=== PATIENT | male | born 1985 | race Caucasian/White ===

== ENCOUNTER 2018-01-17 14:41 | Observation (INO) | payer OTHER ==
[~2018-01-17] VITALS: Ht 182.9 cm; Wt 92.0 kg
[~2018-01-17 14:41] MED LIST: MOTRIN800 MG PO; NORCO 10/3251 TABLET PO; NORCO 7.5/321 TABLET PO; PEN-VEE K,VEET500 MG PO; VENTOLIN HFA18 GM IH
[2018-01-17 15:19] LABS: HEMATOCRIT 44.6 % (38.0-50.0); HEMOGLOBIN 15.7 G/DL (12.5-16.6); MCH 29.7 PG (29.0-34.0); MCHC 35.2 G/DL (30.0-36.0); MCV 84.3 FL (86-99); PLATELET COUNT 235 K/uL (156-360); RBC DIS.WIDTH-CV 13.2 % (11.8-14.6); RBC DIS.WIDTH-SD 40.7 % (39-53); RED BLOOD COUNT 5.29 M/uL (4.00-5.50); WHITE BLOOD COUNT 12.5 K/uL (4.1-10.2)
[2018-01-17 15:28] LABS: AMYLASE 46 IU/L (1-118); CHLORIDE 105 mEq/L (99-109); POTASSIUM 3.6 mEq/L (3.7-5.4); SODIUM 142 mEq/L (136-147)
[2018-01-17 15:30] LABS: GLUCOSE 157 mg/dL (70-99)
[2018-01-17 15:31] LABS: PTT 34.7 SEC (25-37)
[2018-01-17 15:34] LABS: CREATININE 0.9 mg/dL (0.6-1.3); GFR ESTIMATE (CALCULATED) > 59 mL/min/ (58.99-99999)
[2018-01-17 15:35] LABS: UREA NITROGEN (BUN) 12 mg/dL (9-23)
[2018-01-17 15:37] LABS: LIPASE 26 U/L (1.0-51.0)
[2018-01-17 15:40] LABS: TROP-I INTERPRETATION NEGATIVE; TROPONIN-I < 0.01 ng/mL (0.0-0.30)
[2018-01-17] MEDS ORDERED: ADVIL,NUPRIN,M200 MG PO (17:41)
[2018-01-17 18:16] LABS: AMPHETAMINE NEGATIVE (500 ng/mL); BARBITURATES NEGATIVE (200 ng/mL); BENZODIAZEPINES PRESUMPTIVE POSITIVE (150 ng/mL); BUPRENORPHINE NEGATIVE (10 ng/mL); COCAINE PRESUMPTIVE POSITIVE (150 ng/mL); METHADONE NEGATIVE (200 ng/mL); METHAMPHETAMINE NEGATIVE (500 ng/mL); OPIATES (MORPHINE) PRESUMPTIVE POSITIVE (100 ng/mL); OXYCODONE NEGATIVE (100 ng/mL); PHENCYCLIDINE NEGATIVE (25 ng/mL); PROPOXYPHENE NEGATIVE (300 ng/mL); THC CANNABINOIDS PRESUMPTIVE POSITIVE (50 ng/mL); TRICYCLIC ANTIDEPRESSANTS NEGATIVE (300 ng/mL)
[2018-01-17 18:59] LABS: BENZODIAZEPINES, URINE SCREEN POSITIVE (200 ng/mL)
[2018-01-17 19:10] LABS: HDL CHOLESTEROL 36 MG/DL (Desirable>=40); NON-HDL CHOLESTEROL 113 mg/dL (Desirable<160); TOTAL CHOLESTEROL 149 mg/dL (Desirable<200); TRIGLYCERIDES 425 MG/DL (Normal: <150)
[2018-01-17 19:40] VITALS: BP 121/64
[2018-01-17 20:00] LABS: CREATINE KINASE 68 IU/L (1-294)
[2018-01-17 22:53] LABS: APPEARANCE CLEAR ((CLEAR)); BILIRUBIN NEGATIVE; BLOOD NEGATIVE; COLOR STRAW ((YELLOW)); GLUCOSE (STRIP) NEGATIVE; KETONES NEGATIVE; LEUKOCYTES NEGATIVE; NITRITE NEGATIVE; PROTEIN (STRIP) NEGATIVE; SPECIFIC GRAVITY 1.019 (1.000-1.030); UROBILINOGEN 0.2 MG/DL (0.2-1.0)
[2018-01-18 04:03] VITALS: BP 140/71
[2018-01-18 08:30] VITALS: BP 140/77
[2018-01-18 09:07] LABS: HEMOGLOBIN A1c (GLYCOHEMOGLOB) 5.6 % (Below 5.7)
[2018-01-18 11:37] VITALS: BP 161/87
== END 2018-01-18 12:25 | disposition left against medical advice (07) ==
LOC: EME 14:41 → EDOF 18:11 → 4SOUTH 18:11 → ENRESERV 18:14 → 4SOUTH 19:29
PROVIDERS: Hospitalist
DX: S54.21XA Injury of radial nerve at forearm level, right arm, initial encounter (principal); F17.200 Nicotine dependence, unspecified, uncomplicated; J45.909 Unspecified asthma, uncomplicated; F12.90 Cannabis use, unspecified, uncomplicated; Z80.0 Family history of malignant neoplasm of digestive organs; D72.829 Elevated white blood cell count, unspecified
CPT/HCPCS: 70450; 70496; 70498; 70551; 71045; 71046; 80048; 80061; 81003; 82150; 82550 91; 83036; 83690; 84478; 84484; 84999; 85027; 85610; 85730; 93005; 99281; 99285; G0378; J1885; J7040